=== PATIENT | male | born 1985 | race Caucasian/White ===

== ENCOUNTER 2021-04-25 13:12 | Emergency (ER) | payer OTHER ==
[~2021-04-25] VITALS: Ht 182.9 cm; Wt 79.5 kg
[2021-04-25 13:28] VITALS: TEMP 98.1
[2021-04-25] MEDS ORDERED: NASONEX SPRAY17 GM NS (14:09)
[2021-04-25] MEDS ORDERED: PROAIR HFA0.09 MG/AC IH (14:09)
[2021-04-25 14:45] VITALS: BP 128/86; PULSE 75
== END 2021-04-25 14:45 ==
LOC: COL.ER 13:12
DX: T78.40XA Allergy, unspecified, initial encounter (principal); J45.909 Unspecified asthma, uncomplicated; Z79.899 Other long term (current) drug therapy